=== PATIENT | male | born 1940 | race Caucasian/White ===

== ENCOUNTER 2017-11-10 12:35 | Outpatient (CLI) | payer MEDICAID, OTHER ==
--- NOTE | 2017-11-11 09:53 | Diagnostic Imaging Report ---
Exam: CT examination of chest HISTORY: HISTORY of hilar mass. Total DLP equals 150 CTDI equals 3.7 Findings: Multiple contiguous thin section of the chest were obtained from thoracic outlet to the upper abdomen without administration of contrast material therefore the study is limited. 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 There is evidence of for right-sided the pneumothorax approximately 10% with a right chest tube in place. The right-sided subcutaneous soft tissue emphysema is noted. The left lung parenchyma is well aerated. Mediastinal structures midline the aortic arch calcified. No abnormal adenopathy is noted. The visualized upper abdomen is intact. IMPRESSION: 1. Right-sided pneumothorax approximately 10%, right chest tube in good position. 2. Right subcutaneous soft tissue emphysema. 3. No evidence for hilar masses, examination is limited without contrast material administration.
== END 2017-11-10 13:30 | disposition short-term general hospital (02) ==
LOC: RAD 12:35 → EDSEX 12:35 → EEVIPCON 12:35 → RAD 13:30
PROVIDERS: ATTEND General Practice
DX: J44.9 Chronic obstructive pulmonary disease, unspecified (principal); R09.89 Other specified symptoms and signs involving the circulatory and respiratory systems
CPT/HCPCS: 71250-TC